=== PATIENT | male | born 1965 | race Caucasian/White ===

== ENCOUNTER 2020-04-27 10:00 | Emergency (ER) | payer OTHER ==
[~2020-04-27] VITALS: Ht 180.3 cm; Wt 90.7 kg
[2020-04-27] MEDS ORDERED: GLIPIZIDE 10 MG10 MG PO (10:24)
[2020-04-27] MEDS ORDERED: INDOMETHACIN 5050 M1 PO (10:25)
[2020-04-27 10:40] LABS: ABSOLUTE EOSINOPHILS 0.3 thou/uL (0.0-0.7); ABSOLUTE MONOCYTES 0.4 thou/uL (0.0-1.2); ABSOLUTE NEUTROPHILS 4.8 thou/uL (1.6-8.1); BASOPHILS 0.6 %; EOSINOPHILS 4.1 %; HEMATOCRIT 47.8 % (42.0-52.0); HEMOGLOBIN 16.2 gm/dL (14.0-18.0); LYMPHOCYTES 15.6 %; MCH 29.7 pg (26.0-34.0); MCHC 33.8 g/dL (28.0-37.0); MONOCYTES 5.7 %; MPV 10.1 fl. (7.2-11.1); NUCLEATED RBCS 0 /100WBC; PLATELET COUNT* 172 thou/uL (150-400); RBC 5.44 mil/uL (4.50-6.00); WBC 6.4 thou/uL (4.0-11.0)
[2020-04-27] MEDS ORDERED: PERCOCET 5-3251 EACH PO (10:47)
[2020-04-27] MEDS ORDERED: PREDNISONE 20 M20 M1 PO (10:47)
[2020-04-27 10:49] LABS: CALCIUM 8.3 mg/dL (8.5-10.1); CREATININE 1.2 mg/dL (0.6-1.3); POTASSIUM 3.9 mmol/L (3.5-5.1)
[2020-04-27 10:54] LABS: ALBUMIN 3.3 g/dL (3.4-5.0); TOTAL BILIRUBIN 1.2 mg/dL (<0.1-1.0); TOTAL PROTEIN 6.9 g/dL (6.4-8.2)
[2020-04-27 11:41] VITALS: BP 147/100
--- NOTE | 2020-04-27 13:54 | EKG ---
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
== END 2020-04-27 11:41 | disposition home or self-care (01) ==
LOC: M.ERS 10:00
PROVIDERS: Family Medicine
DX: M10.062 Idiopathic gout, left knee (principal); M25.462 Effusion, left knee; E11.9 Type 2 diabetes mellitus without complications

== ENCOUNTER 2021-04-30 23:50 | Emergency (ER) | payer OTHER ==
[~2021-04-30] VITALS: Ht 180.3 cm; Wt 90.7 kg
[~2021-04-30 23:50] MED LIST: GLIPIZIDE 10 MG10 MG PO; INDOMETHACIN 5050 M1 PO; PERCOCET 5-3251 EACH PO; PREDNISONE 20 M20 M1 PO
[2021-05-01] MEDS ORDERED: HYDROCODON-ACE1 EAC7 PO (00:05)
[2021-05-01 01:54] LABS: HEMATOCRIT 47.8 % (42.0-52.0); HEMOGLOBIN 15.5 gm/dL (14.0-18.0); MCH 27.9 pg (26.0-34.0); MCHC 32.5 g/dL (28.0-37.0); MCV 85.7 fL (80.0-100.0); MPV 9.5 fl. (7.2-11.1); RBC 5.57 mil/uL (4.50-6.00); RDW-CV 13.3 % (10.5-14.5); WBC 6.1 thou/uL (4.0-11.0)
[2021-05-01 02:09] LABS: CALCIUM 9.2 mg/dL (8.5-10.1); CREATININE 1.2 mg/dL (0.6-1.3); POTASSIUM 3.9 mmol/L (3.5-5.1)
[2021-05-01 02:14] LABS: ALBUMIN 3.4 g/dL (3.4-5.0); TOTAL BILIRUBIN 0.5 mg/dL (<0.1-1.0); TOTAL PROTEIN 7.5 g/dL (6.4-8.2); URIC ACID* 6.5 mg/dL (2.6-7.2)
[2021-05-01] MEDS ORDERED: TORADOL 10 MG T10 MG PO (02:50)
[2021-05-01] MEDS ORDERED: ULTRAM 50MG TAB50 MG PO (02:50)
[2021-05-01] MEDS ORDERED: AUGMENTIN 500-1 EACH PO (02:55)
[2021-05-01 03:30] VITALS: BP 123/61
== END 2021-05-01 03:30 | disposition home or self-care (01) ==
LOC: M.ERS 23:50
PROVIDERS: Personal Emergency Response Attendant
DX: S63.005A Unspecified dislocation of left wrist and hand, initial encounter (principal); M25.532 Pain in left wrist; E11.9 Type 2 diabetes mellitus without complications; Z79.891 Long term (current) use of opiate analgesic; Z79.899 Other long term (current) drug therapy

== ENCOUNTER 2021-05-04 00:25 | Emergency (ER) | payer OTHER ==
[~2021-05-04] VITALS: Ht 180.3 cm; Wt 90.7 kg
[~2021-05-04 00:25] MED LIST changes: +AUGMENTIN 500-1 EACH PO; +HYDROCODON-ACE1 EAC7 PO; +TORADOL 10 MG T10 MG PO; +ULTRAM 50MG TAB50 MG PO
[2021-05-04 01:52] LABS: ABSOLUTE EOSINOPHILS 0.2 thou/uL (0.0-0.7); ABSOLUTE LYMPHOCYTES 1.7 thou/uL (0.8-5.3); ABSOLUTE MONOCYTES 0.4 thou/uL (0.0-1.2); ABSOLUTE NEUTROPHILS 4.5 thou/uL (1.6-8.1); BASOPHILS 0.7 %; EOSINOPHILS 2.6 %; HEMATOCRIT 45.7 % (42.0-52.0); HEMOGLOBIN 15.2 gm/dL (14.0-18.0); LYMPHOCYTES 24.6 %; MCH 28.3 pg (26.0-34.0); MCHC 33.2 g/dL (28.0-37.0); MCV 85.2 fL (80.0-100.0); MONOCYTES 5.5 %; MPV 8.9 fl. (7.2-11.1); NUCLEATED RBCS 0 /100WBC; PLATELET COUNT* 220 thou/uL (150-400); POLYS 66.6 %; RBC 5.36 mil/uL (4.50-6.00); RDW-CV 13.4 % (10.5-14.5); WBC 6.8 thou/uL (4.0-11.0)
[2021-05-04 01:58] LABS: CALCIUM 8.6 mg/dL (8.5-10.1); CREATININE 1.2 mg/dL (0.6-1.3)
[2021-05-04] MEDS ORDERED: PREDNISONE 20 M20 M1 PO (02:39)
[2021-05-04] MEDS ORDERED: ENDOCET 7.5-321 EACH PO (02:39)
[2021-05-04 03:08] VITALS: BP 167/77
== END 2021-05-04 03:09 | disposition home or self-care (01) ==
LOC: M.ERS 00:25
PROVIDERS: Emergency Medicine
DX: R22.41 Localized swelling, mass and lump, right lower limb (principal); M25.532 Pain in left wrist; E11.9 Type 2 diabetes mellitus without complications; M10.9 Gout, unspecified